=== PATIENT | female | born 1975 | race Two or more races ===

== ENCOUNTER 2023-12-01 12:17 | Observation (INO) | payer OTHER, SELFPAY ==
--- NOTE | 2023-12-01 | EEG_ITS ---
This is a 16-channel EEG with an EKG lead. The patient is reported drowsy during the tracing. Background EEG rhythm is 10 to 14 hertz 5 to 50 microvolt posteriorly and lower amplitude fast anteriorly. Photic stimulation does not produce any significant abnormality. Hyperventilation is unremarkable. No definite sharp wave spikes or paroxysmal tendencies noted. Cardiac lead does not reveal any significant abnormality. IMPRESSION: No significant abnormality noted on this EEG. MD DANNIELLE Lemus/CORBIN / [id number]
--- NOTE | ~2023-12-01 | XR_ITS ---
EXAMINATION: XR CHEST CLINICAL INFORMATION: Stroke COMPARISON: None available. TECHNIQUE: AP upright portable view of the chest was obtained. 1:05 PM FINDINGS: The lungs are well expanded. There is increased opacity seen in the left infrahilar retrocardiac lung which could represent atelectasis and/or pneumonia. No significant abnormality is noted involving the heart, mediastinum, bony thorax or soft tissues. XR/XR chest 1V IMPRESSION: Left lower lobe atelectasis and/or pneumonia. Follow-up to resolution is suggested.
--- NOTE | ~2023-12-01 | MR_ITS ---
EXAMINATION: MR BRAIN WITH AND WITHOUT CONTRAST CLINICAL INFORMATION: New onset seizure COMPARISON: Same-day CT head TECHNIQUE: MRI of the brain was obtained using routine sequences before and following administration of intravenous contrast. A total of 6 mL of Gadavist was administered intravenously. FINDINGS: There is no reduced diffusion to suggest acute infarct. Susceptibility weighted sequence is within normal limits. No mass effect, extra-axial collection, midline shift, or other herniation. No abnormal intracranial enhancement. The hippocampi are symmetric in size and signal intensity. The ventricles and sulci are normal in size and configuration. Few scattered T2/FLAIR hyperintense foci are nonspecific but may represent early chronic microvascular ischemic change. Intracranial flow voids are preserved. Polypoid mucosal thickening in the ethmoid air cells. The mastoid air cells are essentially clear. No focal expansile/destructive osseous lesion. MR/MR head/brain wo/w con IMPRESSION: No acute infarction or abnormal intracranial enhancement.
--- NOTE | ~2023-12-01 | CT_ITS ---
EXAMINATION: CT HEAD WITHOUT CONTRAST (STROKE PROTOCOL) CLINICAL INFORMATION: Stroke protocol. COMPARISON: None available. TECHNIQUE: Contiguous axial imaging was performed from the skull base to vertex without intravenous administration of contrast. This CT examination was performed using dose optimization techniques as appropriate, variously including the following: *Automated exposure control *Adjustment of mA and/or kV according to patient size (this includes techniques or standardized protocols for targeted exams where dose is matched to indication/reason for exam; i.e. extremities or head) *Use of iterative reconstruction technique DLP: 596 mGy-cm FINDINGS: No intracranial hemorrhage is identified. No significant masses or midline structure shift is seen. No abnormal extra-axial fluid collection is noted. Chao-white matter interface is maintained. The ventricles, sulci, and cisterns appear unremarkable. There is question of a a few bilateral low-density regions along the anterior limbs of the internal capsules, which could represent old small lacunar infarcts but this is questionable. CT/CT head for stroke IMPRESSION: No acute intracranial pathology. This critical result was discussed with Darci Maldonado at 12:50 PM hours on December 01, 2023. It was ascertained that the content and urgency of the report was understood at the time of direct communication.
--- NOTE | 2023-12-01 12:29 | ECG_ITS ---
Test Reason : SEIZURE Blood Pressure : / mmHG Vent. Rate : 088 BPM Atrial Rate : 088 BPM P-R Int : 152 ms QRS Dur : 088 ms QT Int : 418 ms P-R-T Axes : 068 036 052 degrees QTc Int : 505 ms Normal sinus rhythm Possible Left atrial enlargement Nonspecific T wave abnormality Prolonged QT Abnormal ECG No previous ECGs available Referred By: Darci aBrron Electronically Signed By:Cory Servin
[2023-12-01 12:41] VITALS: BP 139/80; PULSE 93; RESP 18; TEMP 35.3; O2SAT 98; BMI 25.1
--- NOTE | 2023-12-01 12:48 | ED_ITS ---
HPI - Altered Mental Status General Chief Complaint: Seizure Stated Complaint: STROKE ALERT,2 SEIZURES,APHASIA P/T SEIZURES Time Seen by Provider: 12/01/23 12:23 Source: family (Spouse) and EMS Mode of arrival: EMS Limitations: altered mental status History of Present Illness HPI narrative: A 48-year-old female came in for evaluation of first-time seizure. This is a healthy 48-year-old female who had a witnessed seizure at her work place, EMS arrived after the seizure stopped and patient was in postictal period then patient had another seizure witnessed by EMS patient was given 2 mg of Versed IV with that stopped the seizure, because of unknown past medical history stroke protocol was called by EMS. Patient also noted to have pinpoint pupil and was given 4 mg of Narcan by EMS on arrival patient was unresponsive only to sternal rub. History was obtained from the who reported that patient smokes marijuana daily and drinks wine occasionally, otherwise no known past medical history no known history of seizure, no history of trauma or head injury. While patient in the ED she is gradually regaining her consciousness keep saying ?I do not feel well ?then patient had another tonic-clonic generalized seizure in the emergency department that was controlled with another 2 mg of Versed. Related Data Allergies Allergy/AdvReac Type Severity Reaction Status Date / Time No Known Allergies Allergy Mild N/A Unverified 07/03/20 15:52 Review of Systems 2 Review of Systems: Yes Unobtainable due to mental status PMFSH Social History Social History Advance Directives: No Advance Directives Information Provided: Yes Physical Exam ED Vital Signs: Vital Signs - 24 hr 12/01/23 12:41 12/01/23 13:20 Temperature 95.5 F L Pulse Rate 93 100 Respiratory Rate 18 16 Blood Pressure 139/80 121/73 Pulse Oximetry 98 99 Oxygen Delivery Method Room Air Nasal Cannula Oxygen Flow Rate 2 BMI result Body Mass Index 25.1 Vital signs have been reviewed and appear to be correct. Blood pressure elevated. Heart rate normal. Respiratory rate normal. Temperature normal. Oxygen saturation normal. This exam was performed before her 1st seizure in the emergency department Appearance: Alert. Oriented x1 only to place. No acute distress. Head: Normal external exam. Normocephalic. Atraumatic. No Saeed signs noted. No raccoon eyes noted Eyes: PERRLA. EOMI. Conjunctiva and sclera normal. Eyelids normal. ENT: TM's Normal. Pharynx normal. Uvula midline. Moist mucous membranes. No trismus noted. No drooling noted. No muffled voice noted. Neck: Normal inspection. Neck supple. FROM. No adenopathy. Thyroid Normal. No meningeal signs. No neck mass noted. CVS: Normal heart rate and rhythm. Heart sound normal. No murmurs noted. Pulses normal throughout. Respiratory: No respiratory distress. Painless inspiration. Breath sounds normal. No wheezes/rales/rhonchi noted. Chest nontender. No accessory muscle usage noted or decreased air movement noted. Abdomen: Soft and nontender. Bowel sounds normal in all 4 quadrants. No distention noted. No organomegaly noted. No visible injury noted. Back: No CVA tenderness. Full range of motion noted. Skin: Skin warm and dry. Normal skin color. Normal skin turgor. No rashes/lesions/lacerations noted. Extremities: No lower extremity edema. Extremities exhibit normal range of motion. Extremities nontender. Neuro: Oriented X1 only to place. Cranial nerve exam: II-XII are grossly intact No motor deficit. No sensory deficit. Reflexes normal. Course Reevaluation(s) Reevaluation #1: A 48-year-old female who came in for having 3 episodes of seizure today for the 1st time in her life, history is unobtainable by the patient due to Versed and postictal periods, seizure is well controlled with IV Versed patient got load of Keppra 500 mg IV will admit the patient for further workup and get inpatient neurological evaluation. Questionable left lower lobe atelectasis versus infiltrate patient had few episodes of vomiting while she is in postictal patient at risk for aspiration pneumonia will cover with Zosyn. Time: 14:16 Medications Administered Discontinued Medications Generic Name Dose Route Start Last Admin Trade Name Freq PRN Reason Stop Dose Admin Levetiracetam 500 mg in 100 mls @ 400 mls/hr 12/01/23 12:53 12/01/23 13:08 Keppra IV 12/01/23 13:07 400 mls/hr ONCE ONE Administration Midazolam HCl 2 mg 12/01/23 12:53 12/01/23 13:09 Midazolam Hcl/Pf 2 Mg/2 Ml Vial IVPUSH 12/01/23 12:54 2 mg ONCE ONE Administration Medical Decision Making Differential Diagnosis Differential Diagnoses: The differential diagnosis associated with the presentation includes (Intracranial bleed, intracranial mass, electrolyte abnormality, severe anemia, ACS, substance abuse (unable to obtain urine from the patient), pneumonia.) Admission/Observation Consideration of admission/observation: Escalation of care including admission/observation considered Consult Healthcare Provider Management of the patient was discussed with: Hospitalist (Dr. Boateng) Lab Data MDM Lab Attestation statement: I reviewed the patient's lab results. 12/01/23 13:42 12/01/23 13:42 Labs: Lab Results 12/01/23 Range/Units 13:42 WBC 17.1 H (4.8-10.8) X10*3/uL RBC 4.15 L (4.20-5.50) X10*6/uL Hgb 13.5 (12.0-16.0) g/dl Hct 42.0 (37.0-47.0) % MCV 101.2 H (80.0-98.0) fL MCH 32.5 (27.0-33.0) pg MCHC 32.1 (31.0-35.0) g/dl RDW 13.2 (11.0-16.0) % Plt Count 414 H (160-400) X10*3/uL MPV 8.5 L (9.4-12.3) fL Immature Gran % (Auto) 1.6 H (0.0-0.4) % Neut % (Auto) 87.5 H (45-73) % Lymph % (Auto) 8.0 L (20-40) % [place] % (Auto) 2.6 (2-11) % Eos % (Auto) 0.1 (0-4) % Baso % (Auto) 0.2 (0-2) % Lymph # (Auto) 1.4 (1.2-4.9) X10*3/uL [place] # (Auto) 0.5 (0.1-1.2) X10*3/uL Eos # (Auto) 0.0 (0.0-0.4) X10*3/uL Baso # (Auto) 0.0 (0.0-0.2) X10*3/uL Abs Immat Gran (auto) 0.28 H (0.00-0.03) X10*3/uL Absolute Neuts (auto) 14.9 H (2.0-8.3) x10*3/uL Absolute Nucleated RBC 0.000 (0.0-0.012) X10*3/uL Nucleated RBC % (auto) 0.0 (0.0-0.2) /100WBC PT 10.7 L (11.1-13.3) SEC INR 0.9 (0.9-1.1) APTT 25.2 L (26.0-36.8) SEC Sodium 136 (135-145) mmol/L Potassium 3.9 (3.3-5.1) mmol/L Chloride 106 (96-108) mmol/L Carbon Dioxide 12 L (22-29) mmol/L Anion Gap 22 H (12-20) BUN 14 (9-16) mg/dL Creatinine 1.03 (0.5-1.4) mg/dL Estim Creat Clear Calc 63.2 Estimated GFR 57 Random Glucose 241 H (60-115) mg/dL Calcium 9.3 (8.4-10.2) mg/dL Total Creatine Kinase 106 (26-140) U/L Troponin I High Sens < 2.7 (<3.5-17.0) ng/L Independent Interpretation I performed an independent interpretation of an: Plain X-Ray (Chest:Left lower lobe atelectasis and/or pneumonia. Follow-up to resolution is suggested. ) and CT Scan (No acute intracranial pathology.) Radiology Impression Discussion of test interpretation with radiology: I have reviewed the radiologist's reading. Critical Care Time Critical Care Time Critical Care Time: Yes Total Critical Care Time: 60 Attestation: I spent 60 minutes providing critical care service to the patient, this including time spent at the bedside to evaluate the patient, reassess the patient, monitoring vital signs, review labs, and radiographic studies, counseling the patient/family, discussing the case with consultants, disposition the patient. Discharge Plan Discharge Clinical Impression: Generalized seizure, Pneumonia Patient Disposition: Admitted As Inpatient
--- NOTE | 2023-12-01 12:58 | PC.NURSE ---
patient had approx 2 minute seizure, given 2mg versed via IV. patient now post ictal, not responsive. pt waasplaced on6l nc for airway, VSS as follows 91 hr , 100%, 25 rr
[2023-12-01] MEDS: levETIRAcetam in NaCl (iso-os) 500 MG/100 ML PIGGYBACK 400 MG IV ×2 (13:08→23:43)
[2023-12-01] MEDS: Midazolam HCl/PF 2 MG/2 ML VIAL IVPUSH (13:09)
--- NOTE | 2023-12-01 13:10 | PC.NURSE ---
Notified of Stroke alert in the ED. Upon arrival to ED, patient in CT scan. Report from EMS is that patient had witnessed seizure at work and then again by EMS. EMS gave Versed and then became nervous that pupil was pinpoint so they gave Narcan. In ED CT scanner, pt was able to move herself off of the table onto the ED stretcher. Pt was placed in bed 10. Primary RN attempted to gain hx of events from patient however patient was drowsy and unable to participate fully in neuro exam/assessment. Pt was changed into hospital attire. Once patient was changed, pt had witnessed seizure lasting approximately 2 minutes. Versed IV given. Pt is currently post ictal. Dr. Barron at bedside and also witnessed the seizure. Family in waiting room and updated on patient. Dr. Crain also notified of patient.
[2023-12-01 13:20] VITALS: BP 121/73; PULSE 100; RESP 16; O2SAT 99
[2023-12-01 13:46] LABS: MANUAL DIFF FLAG NO
[2023-12-01 13:51] LABS: Basophils Percent Auto 0.2 % (0-2); Eosinophils Percent Auto 0.1 % (0-4); Hemoglobin 13.5 g/dl (12.0-16.0); Imm Gran Abs Auto 0.28 X10*3/uL (0.00-0.03); Imm Gran Pct Auto 1.6 % (0.0-0.4); Lymphocytes Absolute Auto 1.4 X10*3/uL (1.2-4.9); Mean Corpuscular HGB Conc 32.1 g/dl (31.0-35.0); Mean Corpuscular Hemoglobin 32.5 pg (27.0-33.0); Mean Corpuscular Volume 101.2 fL (80.0-98.0); Mean Platelet Volume 8.5 fL (9.4-12.3); Monocytes Absolute Auto 0.5 X10*3/uL (0.1-1.2); Monocytes Percent Auto 2.6 % (2-11); Neutrophils Absolute Auto 14.9 x10*3/uL (2.0-8.3); Neutrophils Percent Auto 87.5 % (45-73); Platelet Count 414 X10*3/uL (160-400); Red Blood Count 4.15 X10*6/uL (4.20-5.50); Red Cell Distribution Width 13.2 % (11.0-16.0); White Blood Count 17.1 X10*3/uL (4.8-10.8)
[2023-12-01 13:54] LABS: INTERNATIONAL NORM RATIO 0.9 (0.9-1.1); Prothrombin Time 10.7 SEC (11.1-13.3)
[2023-12-01 13:56] LABS: Partial Thromboplastin Time 25.2 SEC (26.0-36.8)
[2023-12-01 14:00] LABS: Stroke Lab Use COMPLETE
[2023-12-01 14:01] LABS: Anion Gap 22 (12-20); Blood Urea Nitrogen 14 mg/dL (9-16); Calcium 9.3 mg/dL (8.4-10.2); Carbon Dioxide 12 mmol/L (22-29); Chloride 106 mmol/L (96-108); Creatinine Clr Calc Pharmacy 63.2; Estimated Glomerular Filt Rate 57; Glucose Random 241 mg/dL (60-115); Potassium 3.9 mmol/L (3.3-5.1); Sodium 136 mmol/L (135-145)
[2023-12-01 14:10] LABS: Troponin-I High Sensitivity < 2.7 ng/L (<3.5-17.0)
--- NOTE | 2023-12-01 15:00 | PC.NURSE ---
patient is becoming more alert and oriented, patient does not recall todays events or anything prior to her seizures, patient is alert and oriented now x3. patient is stating she has a headache, messaged inpt provider, awaiting new orders
--- NOTE | 2023-12-01 15:27 | PHA.MEDREC ---
Pharmacy Consult ? Medication Reconciliation Pharmacy has completed the medication reconciliation. No meds per family. Milly Watson, PharmD
--- NOTE | 2023-12-01 15:40 | P.HPHOSP_ITS ---
History of Present Illness Date of Service: 12/01/23 Chief Complaint: seizure 48F denies significant PMH, presented with convulsions. patient unable to provide history as she cannot remember events. apparently had witnessed seizure at work and with EMS, had another episode in ED. patient has had no previous episodes. her mother does have epilepsy. patient reports 2-3 glasses of wine most days and states last drink 4 days ptp, but denies other withdrawal symptoms. cth unremarkable, cxr wiht possible lll opacity Review of Systems 2 Review of Systems: Yes all other systems are reviewed and are negative [facility] Social History Advance Directives: No Advance Directives Information Provided: Yes Meds Allergies Allergy/AdvReac Type Severity Reaction Status Date / Time No Known Allergies Allergy Mild N/A Unverified 07/03/20 15:52 Home Medications Medication Instructions Recorded Confirmed Last Taken Type No Known Home Meds 12/01/23 12/01/23 Unknown History Physical Exam 2 Vital Signs and Narrative: Vital Signs: Last Vital Signs Temp 95.5 F L 12/01/23 12:41 Pulse 100 12/01/23 13:20 Resp 16 12/01/23 13:20 BP 121/73 12/01/23 13:20 Pulse Ox 99 12/01/23 13:20 O2 Del Method Nasal Cannula 12/01/23 13:20 O2 Flow Rate 2 12/01/23 13:20 BMI result Body Mass Index 25.1 General: AO X 3, no acute distress Resp: CTA bilateral, no accessory muscles used CVS: S1,S2,RRR GI: soft, non tender, non distended Neuro: motor grossly intact, alert Psych: appropriate affect, appropriate insight Results Labs 12/01/23 13:42 12/01/23 13:42 Labs: Laboratory Results - last 24 hr 12/01/23 13:42 MCV 101.2 H MCH 32.5 MCHC 32.1 RDW 13.2 Plt Count 414 H MPV 8.5 L Immature Gran % (Auto) 1.6 H Neut % (Auto) 87.5 H Lymph % (Auto) 8.0 L [place] % (Auto) 2.6 Eos % (Auto) 0.1 Baso % (Auto) 0.2 Lymph # (Auto) 1.4 [place] # (Auto) 0.5 Eos # (Auto) 0.0 Baso # (Auto) 0.0 Abs Immat Gran (auto) 0.28 H Absolute Neuts (auto) 14.9 H Absolute Nucleated RBC 0.000 Nucleated RBC % (auto) 0.0 PT 10.7 L INR 0.9 APTT 25.2 L Anion Gap 22 H Estim Creat Clear Calc 63.2 Estimated GFR 57 Random Glucose 241 H Calcium 9.3 Total Creatine Kinase 106 Troponin I High Sens < 2.7 Imaging Radiologist's Impressions: Impressions Head CT 12/01/23 12:34 IMPRESSION: No acute intracranial pathology. This critical result was discussed with Darci Maldonado at 12:50 PM hours on December 01, 2023. It was ascertained that the content and urgency of the report was understood at the time of direct communication. Chest X-Ray 12/01/23 13:05 IMPRESSION: Left lower lobe atelectasis and/or pneumonia. Follow-up to resolution is suggested. Assessment and Plan (1) Generalized seizure: Status: Acute Plan 48F presented with new onset seizures new onset seizure epilepsy vs etoh withdrawal monitor karolina lewis neuro eval mri, eeg dvt prophylaxis - lovenox full code Quality Stroke Does the patient have a stroke diagnosis?: No VTE Prior VTE?: No VTE Risk Level:: Medical - moderate - high VTE Device Contraindication: Treatment Not Indicated VTE Drug Contraindication: N/A - Med Ordered
[2023-12-01 15:43] LABS: Appearance Urine Clear; Color Urine Yellow; Glucose Urine UA 100 mg/dL (Negative); Leukocyte Esterase Urine Negative (Negative); Nitrite Urine Negative (Negative); Specific Gravity - Urine 1.015 (1.005-1.025); UMIC TRIGGER UACC YES; Urine Blood Trace (Negative); Urine Ketones Negative (Negative); Urine Protein 30 (1+) mg/dL (Neg-Trace)
[2023-12-01 15:44] VITALS: BP 131/79; PULSE 98; RESP 17; TEMP 36.9; O2SAT 100
[2023-12-01] MEDS: Piperacillin Sodium/Tazobactam 3.375 GM in 0.9 % Sodium Chloride 50 ML IV (15:44)
[2023-12-01 15:45] LABS: Bacteria Urine 1+ (None Seen); RBC Urine 0-2 /HPF (0-2); WBC Urine 0-5 /HPF (0-5)
[2023-12-01 15:46] LABS: UPreg QC Valid YES; Urine Pregnancy NEGATIVE (NEGATIVE)
[2023-12-01 15:50] LABS: Amphetamine Screen Urine Not Detected (Not Detect); Barbiturates, Urine Not Detected (Not Detect); Benzodiazepines Screen Urine POSITIVE (Not Detect); Cannabinoid Screen Urine POSITIVE (Not Detect); Cocaine Screen Urine Not Detected (Not Detect); Fentanyl, urine Not Detected (Not Detect); Opiate Screen Urine Not Detected (Not Detect); Phencyclidine Screen Urine Not Detected (Not Detect)
[2023-12-01 15:59] LABS: Alanine Aminotransferase 14 U/L (0-31); Albumin Level 4.5 g/dL (3.5-5.0); Alkaline Phosphatase 83 U/L (39-117); Aspartate Amino Transferase 19 U/L (5-31); Bilirubin Direct < 0.2 mg/dL (0.0-0.5); Bilirubin Total 0.2 mg/dL (0.0-1.0); Total Protein 8.1 g/dL (6.5-8.0)
[2023-12-01 17:41] LABS: Reflex Lactate? Lactic Acid Added
[2023-12-01] MEDS: gadobutroL 7.5 ML VIAL IVPUSH (18:27)
--- NOTE | 2023-12-01 19:16 | PC.NURSE ---
assumed care of pt
[2023-12-01 19:22] VITALS: BP 105/67; PULSE 84; RESP 13; TEMP 36.8; O2SAT 98
[2023-12-01 20:09] LABS: ~Lactic Acid-LAB USE ONLY 0.6 mmol/L (0.5-2.0)
--- NOTE | 2023-12-01 21:12 | PC.NURSE ---
comes in witnessed seizure at work today. No Known hx of. however her mother has epilepsy. Negative head CT, pending MRI results . Chest xray shows lower lobe pneumonia vs atelectasis. Pt admits to 2-3 glasses of wine nightly and was placed on a CIWA however denies past withdrawal. Scoring a 1 at 1915. Pt has ordered Keppra drip and a neuro evaluation . 20 in AC for IV access. A/ox 4 and normally ambulatory however now uses bed farmer per precaution of seizure. Seizure pads in place.
[2023-12-01 21:47] VITALS: BP 102/64; PULSE 73; RESP 21; TEMP 36.8; O2SAT 99
[2023-12-01 23:46] VITALS: BP 106/55; PULSE 66; RESP 16; TEMP 36.8; O2SAT 97
[2023-12-01] MEDS: 0.9 % Sodium Chloride Flush 3 ML SYRINGE IVFLUSH (23:46)
[2023-12-02 03:21] VITALS: BP 104/66; PULSE 66; RESP 16; O2SAT 97
[2023-12-02 04:02] VITALS: BP 106/64; PULSE 63; RESP 17; TEMP 36.8; O2SAT 99
[2023-12-02 05:23] LABS: Hematocrit 35.6 % (37.0-47.0); Hemoglobin 11.8 g/dl (12.0-16.0); Mean Corpuscular HGB Conc 33.1 g/dl (31.0-35.0); Mean Corpuscular Hemoglobin 32.6 pg (27.0-33.0); Mean Corpuscular Volume 98.3 fL (80.0-98.0); Mean Platelet Volume 8.6 fL (9.4-12.3); Platelet Count 358 X10*3/uL (160-400); Red Blood Count 3.62 X10*6/uL (4.20-5.50); Red Cell Distribution Width 13.3 % (11.0-16.0); White Blood Count 12.3 X10*3/uL (4.8-10.8)
[2023-12-02 05:41] LABS: Anion Gap 12 (12-20); Blood Urea Nitrogen 13 mg/dL (9-16); Calcium 8.8 mg/dL (8.4-10.2); Carbon Dioxide 23 mmol/L (22-29); Chloride 107 mmol/L (96-108); Creatinine Clr Calc Pharmacy 55.2; Estimated Glomerular Filt Rate 49; Glucose Fasting 104 mg/dL (60-99); Magnesium 2.6 mg/dL (1.6-2.6); Sodium 138 mmol/L (135-145)
[2023-12-02 06:28] VITALS: BP 108/54; PULSE 61; RESP 17; TEMP 36.6; O2SAT 98
[2023-12-02] MEDS: Enoxaparin Sodium 40 MG/0.4 ML SYRINGE SUBCUT (09:34)
[2023-12-02] MEDS: 0.9 % Sodium Chloride Flush 3 ML SYRINGE IVFLUSH (09:35)
[2023-12-02 11:49] VITALS: BP 90/50; PULSE 62; RESP 18; TEMP 36.8; O2SAT 98
--- NOTE | 2023-12-02 11:52 | PC.NURSE ---
Pt brought back from EEG, pt in room, family at bedside. vs obtain and documented. Will continue to observe.
--- NOTE | 2023-12-02 12:16 | PC.NURSE ---
pt complains of deepthi Beasley notified via [employer] connect
[2023-12-02] MEDS: levETIRAcetam in NaCl (iso-os) 500 MG/100 ML PIGGYBACK 400 MG IV (12:17)
--- NOTE | 2023-12-02 13:06 | P.PNIM_ITS ---
Subjective Subjective Date of Service: 12/02/23 Interval History: headache Physical Exam 2 Vital Signs: Vital Signs: Last Vital Signs Temp 98.3 F 12/02/23 11:49 Pulse 62 12/02/23 11:49 Resp 18 12/02/23 11:49 BP 90/50 L 12/02/23 11:49 Pulse Ox 98 12/02/23 11:49 O2 Del Method Room Air 12/02/23 11:49 O2 Flow Rate 2 12/01/23 13:20 BMI result Body Mass Index 25.1 General: AO X 3, no acute distress Resp: CTA bilateral, no accessory muscles used CVS: S1,S2,RRR GI: soft, non tender, non distended Neuro: motor grossly intact, alert Psych: appropriate affect, appropriate insight Objective Data Active Medications Acetaminophen (Acetaminophen 325 Mg Tablet) 650 mg PO Q4H PRN PRN Reason: Headache Enoxaparin Sodium (Enoxaparin Sodium 40 Mg/0.4 Ml Syringe) 40 mg SUBCUT Q24H [facility] Last Admin: 12/02/23 09:34 Dose: 40 mg Documented By: BRIANNA Levetiracetam (Keppra) 500 mg in 100 mls @ 400 mls/hr IV Q12H [facility] Last Infusion: 12/02/23 12:50 Dose: Infused Documented By: BENNIE Sodium Chloride (0.9 % Sodium Chloride Flush 3 Ml Syringe) 3 ml IVFLUSH QSHIFT [facility] Last Admin: 12/02/23 09:35 Dose: 3 ml Documented By: BRIANNA Labs 12/02/23 04:23 12/02/23 04:23 Labs: Laboratory Results - last 24 hr 12/01/23 12/01/23 12/01/23 13:42 15:31 19:55 MCV 101.2 H MCH 32.5 MCHC 32.1 RDW 13.2 Plt Count 414 H MPV 8.5 L Immature Gran % (Auto) 1.6 H Neut % (Auto) 87.5 H Lymph % (Auto) 8.0 L [place] % (Auto) 2.6 Eos % (Auto) 0.1 Baso % (Auto) 0.2 Lymph # (Auto) 1.4 [place] # (Auto) 0.5 Eos # (Auto) 0.0 Baso # (Auto) 0.0 Abs Immat Gran (auto) 0.28 H Absolute Neuts (auto) 14.9 H Absolute Nucleated RBC 0.000 Nucleated RBC % (auto) 0.0 PT 10.7 L INR 0.9 APTT 25.2 L Anion Gap 22 H Estim Creat Clear Calc 63.2 Estimated GFR 57 Random Glucose 241 H Fasting Glucose Lactic Acid 3.0 H* Lactic Acid F/U @ 2Hr 0.6 Calcium 9.3 Magnesium Total Bilirubin 0.2 Direct Bilirubin < 0.2 AST 19 ALT 14 Alkaline Phosphatase 83 Total Creatine Kinase 106 Troponin I High Sens < 2.7 Total Protein 8.1 H Albumin 4.5 Urine Color Yellow Urine Appearance Clear Urine pH 5.0 Ur Specific [place] 1.015 Urine Protein 30 (1+) H Urine Glucose (UA) 100 H Urine Ketones Negative Urine Blood Trace H Urine Nitrite Negative Ur Leukocyte Esterase Negative Urine RBC 0-2 Urine WBC 0-5 Ur Squamous Epith Cells 3-5 Urine Bacteria 1+ Hyaline Casts 3-5 Urine Test NEGATIVE Urine Opiates Screen Not Detected Urine Fentanyl Screen Not Detected Ur Barbiturates Screen Not Detected Ur Phencyclidine Scrn Not Detected Ur Amphetamines Screen Not Detected U Benzodiazepines Scrn POSITIVE H Urine Cocaine Screen Not Detected U Marijuana (THC) Screen POSITIVE H 12/02/23 04:23 MCV 98.3 H MCH 32.6 MCHC 33.1 RDW 13.3 Plt Count 358 MPV 8.6 L Immature Gran % (Auto) Neut % (Auto) Lymph % (Auto) [place] % (Auto) Eos % (Auto) Baso % (Auto) Lymph # (Auto) [place] # (Auto) Eos # (Auto) Baso # (Auto) Abs Immat Gran (auto) Absolute Neuts (auto) Absolute Nucleated RBC 0.000 Nucleated RBC % (auto) 0.0 PT INR APTT Anion Gap 12 Estim Creat Clear Calc 55.2 Estimated GFR 49 Random Glucose Fasting Glucose 104 H Lactic Acid Lactic Acid F/U @ 2Hr Calcium 8.8 Magnesium 2.6 Total Bilirubin Direct Bilirubin AST ALT Alkaline Phosphatase Total Creatine Kinase Troponin I High Sens Total Protein Albumin Urine Color Urine Appearance Urine pH Ur Specific [place] Urine Protein Urine Glucose (UA) Urine Ketones Urine Blood Urine Nitrite Ur Leukocyte Esterase Urine RBC Urine WBC Ur Squamous Epith Cells Urine Bacteria Hyaline Casts Urine Test Urine Opiates Screen Urine Fentanyl Screen Ur Barbiturates Screen Ur Phencyclidine Scrn Ur Amphetamines Screen U Benzodiazepines Scrn Urine Cocaine Screen U Marijuana (THC) Screen Assessment and Plan (1) Generalized seizure: Status: Acute Plan 48F presented with new onset seizures new onset seizure epilepsy vs etoh withdrawal monitor ciwa - so far no evidence of withdrawal keppra neuro eval mri negative follow up eeg aspiration pneumonitis resolved dvt prophylaxis - lovenox full code reason for continued hospitalization: awatiing neuro eval, eeg Quality Stroke Does the patient have a stroke diagnosis?: No VTE Prior VTE?: No VTE Risk Level:: Medical - moderate - high VTE Device Contraindication: Treatment Not Indicated VTE Drug Contraindication: N/A - Med Ordered
--- NOTE | 2023-12-02 14:24 | PC.NURSE ---
late entry 1222: this nurse went to take down keppra drip, pt complained of pain at the IV site in right wrist, unable to flush without discomfort. IV site is slightly red and soft wih dried blood around cannula. Site was cleansed with ns, and j-loop replaced, pt was still experiencing discomfort. IV line was removed and new 20G PIV placed right lateral bicep, well tolerated by pt, primary nurse aware.
--- NOTE | 2023-12-02 14:57 | P.CNNE_ITS ---
History of Present Illness Data of Consult Service Date: 12/02/23 Primary Care Provider: DO EDGAR Mcdermott Reason for consult: Seizure 48 years old woman who was drinking every day and the night before she took little bit more was noted to have a seizure at work. She did not know what happened. Apparently she passed out and had a seizure that resulted in some injury to her chest. She also had mild left-sided tongue bite. She did not have any prior seizures. There was a family history of seizure disorder. Review of Systems 2 Review of Systems: Regular alcohol drinking [facility] Social History Social History Patient Tobacco Use Status: Never used Tobacco Advance Directives: No Advance Directives Information Provided: Yes Nutrition Risks: No Nutritional Risk Meds Allergies Allergy/AdvReac Type Severity Reaction Status Date / Time No Known Allergies Allergy Mild N/A Unverified 07/03/20 15:52 Active Medications: Current Medications Acetaminophen (Acetaminophen 325 Mg Tablet) 650 mg PO Q4H PRN PRN Reason: Headache Enoxaparin Sodium (Enoxaparin Sodium 40 Mg/0.4 Ml Syringe) 40 mg SUBCUT Q24H [facility] Last Admin: 12/02/23 09:34 Dose: 40 mg Levetiracetam (Keppra) 500 mg in 100 mls @ 400 mls/hr IV Q12H [facility] Last Infusion: 12/02/23 12:50 Dose: Infused Sodium Chloride (0.9 % Sodium Chloride Flush 3 Ml Syringe) 3 ml IVFLUSH QSHIFT [facility] Last Admin: 12/02/23 09:35 Dose: 3 ml Home Medications Medication Instructions Recorded Confirmed Last Taken Type No Known Home Meds 12/01/23 12/01/23 Unknown History Physical Exam 2 Vital Signs: Vital Signs: Last Vital Signs Temp 98.3 F 12/02/23 11:49 Pulse 62 12/02/23 11:49 Resp 18 12/02/23 11:49 BP 90/50 L 12/02/23 11:49 Pulse Ox 98 12/02/23 11:49 O2 Del Method Room Air 12/02/23 11:49 O2 Flow Rate 2 12/01/23 13:20 BMI result Body Mass Index 25.1 Neuro: Other: She is alert and awake with normal spontaneity of speech fluency comprehension and jovial affect. Face is symmetrical. Visual kapoor are full. Deep tendon reflexes are 1+ with flexor plantars. [id number] testing revealed mild tremor. Results Labs 12/02/23 04:23 12/02/23 04:23 Labs: Short CBC 12/02/23 Range/Units 04:23 WBC 12.3 H (4.8-10.8) X10*3/uL Hgb 11.8 L (12.0-16.0) g/dl Hct 35.6 L (37.0-47.0) % Plt Count 358 (160-400) X10*3/uL BMP 12/02/23 04:23 Sodium 138 Potassium 4.0 Chloride 107 Carbon Dioxide 23 BUN 13 Creatinine 1.18 Calcium 8.8 Liver Function 12/01/23 Range/Units 13:42 Total Bilirubin 0.2 (0.0-1.0) mg/dL Direct Bilirubin < 0.2 (0.0-0.5) mg/dL AST 19 (5-31) U/L ALT 14 (0-31) U/L Alkaline Phosphatase 83 (39-117) U/L Albumin 4.5 (3.5-5.0) g/dL Urine 12/01/23 Range/Units 15:31 Urine Color Yellow Urine Appearance Clear Urine pH 5.0 (5.0-9.0) Ur Specific [place] 1.015 (1.005-1.025) Urine Protein 30 (1+) H (Neg-Trace) mg/dL Urine Glucose (UA) 100 H (Negative) mg/dL Head CT revealed mild fronto parietal cortical atrophy. MRI of brain did not reveal any acute lesion. Assessment and Plan (1) Alcohol abuse: Status: Acute (2) Generalized seizure: Status: Acute 48 years old woman who probably had a generalized seizure with underlying significant alcohol abuse. She is educated about this consult that with this amount of alcohol seizure disorder was a common problem when she should completely quit drinking alcohol. Otherwise her examination and imaging have not reveal any epileptogenic lesion. For now, I would not start any antiepileptic but if she has another event, I would start her on levetiracetam 500 mg twice a day. She should not drive and not be involved in an activity that could put her life in danger such as swimming alone or sitting in a soaking tub alone. Outpatient EEG is recommended to assess her underlying risk for epilepsy. If EEG is abnormal, antiepileptic should be considered. Procedures Date of Service Date of Service: 12/02/23
--- NOTE | 2023-12-02 15:14 | PM.DS ---
DS: Providers Provider Date of Service: 12/02/23 Date of admission: 12/01/23 15:38 Primary care physician: Cyndee Solano DO Consults: 12/01/23 15:38 Consult to Neurology Routine Consulting Provider: [facility] Reason for consultation: new seizure DS: Diagnosis Discharge Diagnosis (1) Alcohol abuse: Status: Acute (2) Generalized seizure: Status: Acute DS: Summary Hospital Course Hospital Course: from initial hpi: 48F denies significant PMH, presented with convulsions. patient unable to provide history as she cannot remember events. apparently had witnessed seizure at work and with EMS, had another episode in ED. patient has had no previous episodes. her mother does have epilepsy. patient reports 2-3 glasses of wine most days and states last drink 4 days ptp, but denies other withdrawal symptoms. cth unremarkable, cxr wiht possible lll opacity hospital course: Patient was observed for new onset seizure. She was seen by Neurology who recommended EEG which was done and should be followed up outpatient. Currently recommendations are not to drive. To hold off on further antiepileptic drugs at this time but would need if recurs. Patient advised to stay away from alcohol. Patient had aspiration pneumonitis which resolved. She will be discharged home. Time Attestation Discharge coordination time: Greater than 30 minutes Quality: Safe Use of Opioids Does Pt have an Active Cancer Diagnosis on the Problem List?: No Quality: Stroke Does the patient have a stroke diagnosis?: No Physical Exam Vital Signs: Vital Signs: Last Vital Signs Temp 98.3 F 12/02/23 11:49 Pulse 62 12/02/23 11:49 Resp 18 12/02/23 11:49 BP 90/50 L 12/02/23 11:49 Pulse Ox 98 12/02/23 11:49 O2 Del Method Room Air 12/02/23 11:49 O2 Flow Rate 2 12/01/23 13:20 BMI result Body Mass Index 25.1 General: AO X 3, no acute distress Resp: CTA bilateral, no accessory muscles used CVS: S1,S2,RRR GI: soft, non tender, non distended Neuro: motor grossly intact, alert Psych: appropriate affect, appropriate insight DS: Data Data Completed and Pending Labs on day of discharge: Laboratory Results - last 24 hr 12/01/23 12/01/23 12/01/23 13:42 15:31 19:55 WBC RBC Hgb Hct MCV MCH MCHC RDW Plt Count MPV Absolute Nucleated RBC Nucleated RBC % (auto) Sodium Potassium Chloride Carbon Dioxide Anion Gap BUN Creatinine Estim Creat Clear Calc Estimated GFR Fasting Glucose Lactic Acid 3.0 H* Lactic Acid F/U @ 2Hr 0.6 Calcium Magnesium Total Bilirubin 0.2 Direct Bilirubin < 0.2 AST 19 ALT 14 Alkaline Phosphatase 83 Total Protein 8.1 H Albumin 4.5 Urine Color Yellow Urine Appearance Clear Urine pH 5.0 Ur Specific [place] 1.015 Urine Protein 30 (1+) H Urine Glucose (UA) 100 H Urine Ketones Negative Urine Blood Trace H Urine Nitrite Negative Ur Leukocyte Esterase Negative Urine RBC 0-2 Urine WBC 0-5 Ur Squamous Epith Cells 3-5 Urine Bacteria 1+ Hyaline Casts 3-5 Urine Test NEGATIVE Urine Opiates Screen Not Detected Urine Fentanyl Screen Not Detected Ur Barbiturates Screen Not Detected Ur Phencyclidine Scrn Not Detected Ur Amphetamines Screen Not Detected U Benzodiazepines Scrn POSITIVE H Urine Cocaine Screen Not Detected U Marijuana (THC) Screen POSITIVE H 12/02/23 04:23 WBC 12.3 H RBC 3.62 L Hgb 11.8 L Hct 35.6 L MCV 98.3 H MCH 32.6 MCHC 33.1 RDW 13.3 Plt Count 358 MPV 8.6 L Absolute Nucleated RBC 0.000 Nucleated RBC % (auto) 0.0 Sodium 138 Potassium 4.0 Chloride 107 Carbon Dioxide 23 Anion Gap 12 BUN 13 Creatinine 1.18 Estim Creat Clear Calc 55.2 Estimated GFR 49 Fasting Glucose 104 H Lactic Acid Lactic Acid F/U @ 2Hr Calcium 8.8 Magnesium 2.6 Total Bilirubin Direct Bilirubin AST ALT Alkaline Phosphatase Total Protein Albumin Urine Color Urine Appearance Urine pH Ur Specific Walker Urine Protein Urine Glucose (UA) Urine Ketones Urine Blood Urine Nitrite Ur Leukocyte Esterase Urine RBC Urine WBC Ur Squamous Epith Cells Urine Bacteria Hyaline Casts Urine Test Urine Opiates Screen Urine Fentanyl Screen Ur Barbiturates Screen Ur Phencyclidine Scrn Ur Amphetamines Screen U Benzodiazepines Scrn Urine Cocaine Screen U Marijuana (THC) Screen Discharge Plan Discharge Anticipated Discharge Date/Time: 12/02/23 15:12 Patient Disposition: Home, Self-Care Discharge Diagnosis: seizure Referrals: Lucas Herrera MD [Physician] - 1 Week Cyndee Barnes DO [Primary Care Provider] - 1 Week Discharge Medications: No Action No Known Home Meds Discharge Orders: Discharge Order (Routine); Ordered 12/02/23 Ordered By: Osbaldo Beasley Diet: Advance to usual diet Activity on Discharge: no driving Stand Alone Forms: Patient Portal Discharge page Care Plan Goals: avoid seizures Health Concerns: seizure, etoh Plan of Treatment: no meds for now, follow up eeg results and neurology no driving until cleared by neuro avoid alcohol Assessment: see above
--- NOTE | 2023-12-02 15:27 | MHC.CM.PN ---
PT WILL DC HOME TODAY WITH NO SERVICES VIA PRIVATE TRANSPORT
[2023-12-02] MEDS: Acetaminophen 325 MG TABLET 650 MG PO (16:10)
--- NOTE | 2023-12-02 16:20 | MHC.CM.PN ---
CM MET WITH PT AND AT BEDSIDE PT LIVES AT HOME WITH SO AND CHILDREN SHE IS INDEPENDENT WITH CARE AND WORKS PT HAS NO DME AND NO SERVICES SHE SAYS SHE HAS A HCP, COPY REQUESTED SHE DOES NOT KNOW THE NAME OF HER PCP OR THE PRACTICE, BUT GOES TO [facility] AND CONFIRMS SHE IS ACTIVE PT WILL DC HOME TODAY WITH NO SERVICES VIA PRIVATE TRANSPORT
== END 2023-12-02 16:30 | disposition home or self-care (01) ==
LOC: HO.ED 14:31 → HO.EDOVER 15:51
PROVIDERS: Admitting Provider Internal Medicine; Emergency Provider Emergency Medicine; PCP Internal Medicine; Visit Provider Internal Medicine
DX: R56.9 Unspecified convulsions (principal); R47.01 Aphasia; J18.9 Pneumonia, unspecified organism; F10.10 Alcohol abuse, uncomplicated; D72.829 Elevated white blood cell count, unspecified; E87.20 Acidosis, unspecified
CPT/HCPCS: 36415; 70450; 70553; 71045; 80048; 80076; 80307; 81001; 81025; 82550; 83605; 83735; 84484; 85025; 85027; 85610; 85730; 87040; 93005; 95816; 96365; 96366; 96368; 96372; 96375; 99222; 99285; A9585; J1650; J1953; J2250; J2543

== ENCOUNTER → 2023-12-01 12:29 | Outpatient (BNV) | payer OTHER, SELFPAY | PROVIDERS: Admitting Provider Internal Medicine; Emergency Provider Emergency Medicine; Visit Provider Internal Medicine Cardiovascular Disease | DX: I45.81 Long QT syndrome (principal) | CPT/HCPCS: 93010 ==

== ENCOUNTER → 2023-12-01 13:45 | Outpatient (BNV) | payer OTHER, SELFPAY | PROVIDERS: Emergency Provider Emergency Medicine; Visit Provider Internal Medicine | DX: R56.9 Unspecified convulsions (principal); F10.10 Alcohol abuse, uncomplicated | CPT/HCPCS: 99222; 99238 ==

== ENCOUNTER → 2023-12-01 15:38 | Outpatient (BNV) | payer OTHER, SELFPAY | PROVIDERS: Admitting Provider Internal Medicine; Emergency Provider Emergency Medicine; PCP Internal Medicine; Visit Provider Psychiatry & Neurology Neurology | DX: F10.10 Alcohol abuse, uncomplicated (principal); R56.9 Unspecified convulsions | CPT/HCPCS: 99222 ==

== ENCOUNTER 2025-07-22 12:56 | Outpatient (AMB) | payer OTHER, SELFPAY ==
--- NOTE | 2025-07-22 13:02 | A.OFFVIS_ITS ---
Intake Visit Reasons: 1 year follow up Allergies No Known Allergies Allergy (Mild, Unverified 07/03/20 15:52) N/A HPI Comments Details: The patient is a 49-year-old female presenting with concerns following a seizure in November 2023. The event is attributed to alcohol, as the patient consumed two to three glasses of wine daily at that time. The seizure episode was characterized by a loss of consciousness, generalized convulsions, and tongue biting. Imaging studies, including CT and MRI, and an EEG post-event were unremarkable. Though she has not been on Keppra recently, she initially began this treatment post-seizure. Currently, although she has reduced her alcohol intake, she reports sporadic consumption, coupled with stress-related cognitive difficulties impacting her job performance. She experiences memory deficits and emotional lability, which she feels are affecting her task management at work. Without additional seizure occurrences, she questions the need for ongoing medication. [facility] Medical History (Updated 07/22/25 @ 13:18 by Taniya Crain MD) Insomnia Acoustic neuroma MCI (mild cognitive impairment) Ataxia Hypertension Social History Patient Tobacco Use Status: Never used Tobacco service: No Review of Systems Const Details: - Neurological: Reports memory issues and stress-related cognitive difficulties. - Psychiatric: Reports emotional fluctuations; Reports stress affecting job performance; Denies any new seizure activity since the initial episode. Physical Exam Neuro Other: Mental Status: Alert and oriented to person, place, and time. Normal attention. Normal s pontaneous speech, fluency, and comprehension. No obvious issues with mood and memory. Affect is appropriate. Cranial Nerves: CN II: Visual kapoor full to confrontation, visual acuity intact. CN III, IV, : Pupils equal, round, reactive to light and accommodation. Extraocular movements are normal. CN V: Facial sensation is normal. CN VII: Facial movements symmetrical. CN VIII: Hearing intact to bedside conversation is normal. CN IX, X: Palate elevates symmetrically. CN XI: Shoulder shrug and head turn symmetrical. CN XII: Tongue midline without atrophy or fasciculations. Reflexes: Deep tendon reflexes 2+ and symmetric. Plantar response down-going bilaterally. Coordination: [id number] and [id number] testing normal. No dysmetria. Gait and Station: No obvious gait abnormality. No ataxia or instability. Extrapyramidal: Full facial expressions and blinking. No rigidity. Movements are appropriate with no tremor or abnormality. Speech: Normal; no dysarthria or tremor. Assessment & Plan Assessment & Plan (1) Generalized seizure: Comment: EEG at [facility] in Dec 2023: [place] [facility] [place] [facility] [place] Code(s): R56.9 - Unspecified convulsions Category: Medical (2) H/O alcohol abuse: Code(s): F10.11 - Alcohol abuse, in remission Category: Medical Plan Impression recommendations: 49 years old woman who had been drinking alcohol when in November of 2023 she came to [facility] after she passed out and had a generalized convulsion with tongue bite. At that time her workup, other than history of alcohol, did not reveal any significant abnormality and brain imaging did not reveal any significant problem either. An EEG done later was unremarkable. She was here stating that she has stopped drinking. She was under somewhat of a stressful situation but also trying to manage her overall work performance and emotional health. As far as seizures are concerned, which she had not being drinking anymore, with normal examined brain imaging an EEG, I am not prescribing any medicine at this stage. If any seizure-like episode should occur, she should consult us again in which case I would probably restart medicine. She was advised to sleep regularly and avoid stresses. Coding Level of Care Code Est Pt Level 4 (04756) Diagnoses Generalized seizure R56.9 H/O alcohol abuse F10.11
== END 2025-07-22 13:23 | disposition home or self-care (01) ==
LOC: HO.HSM 12:56
PROVIDERS: PCP Internal Medicine; Visit Provider Psychiatry & Neurology Neurology
DX: R56.9 Unspecified convulsions (principal); F10.11 Alcohol abuse, in remission
CPT/HCPCS: 99214